=== PATIENT | female | born 1975 | race Caucasian/White ===

== ENCOUNTER 2025-02-03 08:36 | Day surgery (SDC) | payer BC ==
[~2025-02-03] VITALS: Ht 167.6 cm; Wt 90.7 kg
[~2025-02-03 08:36] MED LIST: ALPRAZOLAM1 M1 PO; ATENOLOL50 MG PO; MAXZIDE-25MG1 COMBO PO; OMEPRAZOLE DR40 MG PO; VERAPAMIL240 M3 PO
[2025-02-03] MEDS ORDERED: FAMOTIDINE 10MG/ML 2ML SDV IV ONE (08:38)
[2025-02-03] MEDS ORDERED: SODIUM CHLORIDE 0.9% 1,000 ML IV ONE (08:39)
[2025-02-03 10:33] VITALS: BP 144/91
[2025-02-03] MEDS ORDERED: LIDOCAINE HCL 2% 2ML SDV IV ONE (12:15)
[2025-02-03] MEDS ORDERED: PROPOFOL 200 MG/20 ML VIAL IV ONE (12:15)
== END 2025-02-03 10:56 | disposition home or self-care (01) | DRG 951 ==
LOC: ENDO 08:36
PROVIDERS: ATTEND Surgery
PROC: 0DJD8ZZ Inspection of Lower Intestinal Tract, Via Natural or Artificial Opening Endoscopic (ICD-10-PCS; principal; 2025-02-03)
DX: Z12.11 Encounter for screening for malignant neoplasm of colon (principal); K64.8 Other hemorrhoids; I10 Essential (primary) hypertension; K21.9 Gastro-esophageal reflux disease without esophagitis; F41.9 Anxiety disorder, unspecified; Z80.0 Family history of malignant neoplasm of digestive organs